=== PATIENT | male | born 1990 | race Hispanic/Latino ===

== ENCOUNTER → 2018-07-14 | Outpatient (CLI) | payer OTHER ==
[~2018-07-14] MED LIST: KEFL500C17 PO; NAPR250T4 PO
--- NOTE | 2018-07-14 12:52 | REP ---
Clinical: Trauma. Technique: AP, lateral, bilateral oblique views of the left second digit. Findings: Fracture of the terminal tuft/distal phalanx consistent with crush injury. Impression: Terminal tuft fracture consistent with crush injury. Electronically Signed by Du Eller MD 07/14/2018 12:44 P
== END ==
LOC: M RAD 12:08
PROVIDERS: ATTEND Surgery
DX: S62.660A Nondisplaced fracture of distal phalanx of right index finger, initial encounter for closed fracture (principal); X58.XXXA Exposure to other specified factors, initial encounter; Y92.89 Other specified places as the place of occurrence of the external cause

== ENCOUNTER 2018-07-15 11:50 | Emergency (ER) | payer OTHER ==
[~2018-07-15] VITALS: Ht 167.6 cm; Wt 95.5 kg
[2018-07-15] MEDS ORDERED: NAPR250T4 PO (12:11)
[2018-07-15] MEDS ORDERED: cefTRIAXone SOD 1 GM VIAL (J0696) IM ONE (12:30)
[2018-07-15] MEDS ORDERED: LIDOCAINE 1% SDV 5 ML VIAL DILUENT ONE (12:30)
[2018-07-15] MEDS ORDERED: KEFL500C17 PO (12:33)
[2018-07-15] MEDS ORDERED: NEOSPORIN OINT 0.9 GM PKT (FLOOR STOCK) As Ordered ONE (12:36)
[2018-07-15] MEDS ORDERED: NEOSPORIN OINT 0.9 GM PKT (FLOOR STOCK) TOP ONE (12:45)
[2018-07-15] MEDS ORDERED: ADACEL/BOOSTRIX VACCINE (DIPHTH/PERTUSS/ACELL/TETANUS)0.5ML SYR (90715) IM ONE (12:45)
[2018-07-15 13:01] VITALS: BP 135/73
== END 2018-07-15 13:18 | disposition home or self-care (01) ==
LOC: M ED 11:50
DX: S62.631B Displaced fracture of distal phalanx of left index finger, initial encounter for open fracture (principal); W23.0XXA Caught, crushed, jammed, or pinched between moving objects, initial encounter; Y92.148 Other place in prison as the place of occurrence of the external cause
CPT/HCPCS: 90471; 90715; 96372; 99284; J0696